=== PATIENT | male | born 1995 | race Caucasian/White ===

== ENCOUNTER 2020-04-28 06:26 | Emergency (ER) | payer OTHER, SELFPAY ==
[2020-04-28 06:37] VITALS: BP 135/75; PULSE 77; RESP 18; TEMP 36.8; O2SAT 100; BMI 39.4
[2020-04-28 07:07] LABS: Glucose, Whole Blood 198 mg/dL (60-115)
--- NOTE | 2020-04-28 07:19 | ED.URI ---
HPI - URI/Sore Throat General Chief Complaint: Upper Respiratory Symptoms Stated Complaint: Sob/ Pending covid results Time Seen by Provider: 04/28/20 06:48 History of Present Illness HPI Narrative: Positive coughing positive upper respiratory symptoms ongoing for about 2 days. Patient already been tested for coronavirus at [facility]. Patient claims there is a family member tested positive for coronavirus. There is no change in smell or taste. There is positive coughing. There is positive upper respiratory symptoms. Patient has a history of diabetes. Also history of asthma. Never been admitted to the hospital. Patient from home. No recent travel. Positive generalized malaise. Related Data Allergies Allergy/AdvReac Type Severity Reaction Status Date / Time No Known Allergies Allergy Unverified 01/21/20 18:57 [No Known Allergies*] Review of Systems Review of Systems: Constitutional: No Weight loss, phos is Fever, No Chills, No Night Sweats, positive Fatigue, No Malaise ENT/Mouth: No Hearing loss, No Ear Pain, No Nasal Congestion, No Sinus Pain, No Hoarseness, No sore throat, No Rhinorrhea, No Swallowing Difficulty Eyes: No Eye Pain, No Swelling, No Redness, No Foreign Body, No Discharge, No Vision Changes Cardiovascular: No Chest Pain, No SOB, No Dyspnea on Exertion, No Orthopnea, No Edema, No Palpitations Respiratory: Positive Cough, No Sputum, No Wheezing, No Smoke Exposure, No Dyspnea Gastrointestinal: No Nausea, No Vomiting, No Diarrhea, No Constipation, No abdominal Pain, No Hematochezia, No Melena Genitourinary: no irregular bleeding, No Dysuria, No Urinary Frequency, No Hematuria, No Urinary Incontinence, No Urgency, No Flank Pain, No Urinary Flow Changes, No Hesitancy Musculoskeletal: No joint pain, No Myalgias, No Joint Swelling Skin: No Skin Lesions, No rash Neuro: No Weakness, No Numbness, No Paresthesias, No Loss of Consciousness, No Dizziness, No Headache Psych: No Anxiety/Panic, No Depression, No SI/HI/AH/VH, No Social Issues, Heme/Lymph: No Bruising, No Bleeding,No Lymphadenopathy Endocrine: No Polyuria, No Polydipsia, No Temperature Intolerance Yes all other systems are reviewed and are negative [facility] Past Medical History Attestation statement: The following information was validated with the patient. Medical History Asthma Diabetes mellitus, type 2 Surgical History History of appendectomy Social History Social History Advance Directives: No Physical Exam Vital Signs: Vital Signs: Last Vital Signs Temp 98.3 F 04/28/20 06:37 Pulse 77 04/28/20 06:37 Resp 18 04/28/20 06:37 BP 135/75 04/28/20 06:37 Pulse Ox 100 04/28/20 06:37 Body Mass Index 39.4 Appearance: Alert. Oriented X3. No acute distress. Eyes: Pupils equal, round and reactive to light. ENT: Pharynx normal. Neck: Normal inspection. Neck supple. No lymph nodes noted. No crepitus CVS: Normal heart rate and rhythm. Pulses normal. Normal S1 and S2 Respiratory: No respiratory distress. Breath sounds normal. No Wheezing. No rales Abdomen: Soft and nontender. No rigidity. No distention. good BS x4 Skin: Skin warm and dry. Normal skin color. Normal skin turgor. Extremities: No lower extremity edema. Neurovascular intact to all extremities. No Lacerations. No Rash Neuro: Oriented X 3. No motor deficit. No sensory deficit. Moving all extermities. No slurred speech MDM - URI/Sore Throat MDM Narrative Medical decision making narrative: Patient's O2 sat is 100% on room air. POC glucose was 198 no evidence for hyperglycemia. Will discharge patient home. Advised to stay at home quarantine until all symptom has improved and no fever for at least 24-48 hours. Currently in stable condition. Likely coronavirus Differential Diagnosis Differential diagnosis: Likely upper respiratory infection Medical Records Attestation: I reviewed the patient's medical records. Lab Data Attestation: I reviewed the patient's lab results. Labs: Lab Results 04/28/20 Range/Units 07:03 POC Glucose 198 H (60-115) mg/dL Discharge Plan Discharge Clinical Impression: COVID-19 Patient Disposition: Home, Self-Care Instructions: COVID-19 (Coronavirus Disease 2019) (ED) Referrals: Shahriar Hendrickson MD [Primary Care Provider] - 2 days
== END 2020-04-28 08:00 | disposition home or self-care (01) ==
PROVIDERS: Emergency Provider Emergency Medicine Emergency Medical Services; PCP Internal Medicine
DX: Z20.828 Contact with and (suspected) exposure to other viral communicable diseases (principal); R05 Cough; E11.9 Type 2 diabetes mellitus without complications; J45.909 Unspecified asthma, uncomplicated
CPT/HCPCS: 82947; 99283

== ENCOUNTER 2024-12-22 00:38 | Emergency (ER) | payer OTHER, SELFPAY ==
--- NOTE | ~2024-12-22 | XR_ITS ---
CLINICAL HISTORY: stepped on nail foot pain 3 view right foot Comparison: None provided Findings: Imaged fusion of the distal 5th interphalangeal joint. No acute displaced fracture. No dislocation. No retained metallic foreign body. IMPRESSION: 1. No retained metallic foreign body. 2. No displaced fracture. This document has been electronically signed by: Desahwn Lentz MD on 12/22/2024 01:55:45
[2024-12-22 00:42] VITALS: BP 116/72; PULSE 84; RESP 18; TEMP 36.3; O2SAT 98; BMI 31.6
--- OUTSIDE RECORDS SUMMARY | 2024-12-22 03:49 | XMS_ITS | Clinical Summary ---
Author Organization [facility] [address] [place] [address] [place] [phone] Phone Care Team Providers Care Social Science Professor Name Role Phone Shahriar Hendrickson MD Primary Care Provider [phone] Allergies Active Allergy Reactions Criticality Noted Date Comments Cyclobenzaprine Hcl 02/17/2014 Itchy and nausea Medications blood sugar diagnostic (FreeStyle Lite Strips) test strip Use to check blood sugar once daily. 4 Active FREESTYLE LANCETS MISC Use to check blood sugar once daily. 4 Active clotrimazole-be tamethasone (LOTRISONE) 1-0.05 % cream Apply 1 Application topically 2 (two) times a day. 3 Active metFORMIN XR (GLUCOPHAGE-XR) 500 mg 24 hr tablet Take 2 Tablets by mouth 2 times daily (with meals). 360 tablet 1 5 Active Active Problems Problem Noted Date Diagnosed Date Type 2 diabetes mellitus wit hout complication ([facility] V24, [facility] V28) 05/18/2019 Obesity (BMI 30-39.9) 03/21/2018 Fractured hand 02/21/2015 Anxiety 09/01/2014 History of positive PPD Overview (05/14/2024): DX:History of positive PPD; COMMENT: 18mm 07/25/14/ chest xray neg Encounters Date Type Department Care Team Description 11/03/2024 1:20 PM EDT - 11/03/2024 11:59 PM EDT Hospital Encounter [facility] Ultrasound [address] [place] [address] Localized enlarged lymph nodes Discharge Disposition: Home or Self Care from Last 3 Months Immunizations Name Administration Dates Next Due Tdap Tetanus diptheria acell ular pertussis (Boostrix; Adacel) 7yo and older 03/04/2017 Surgical History Surgery Date Site/Laterality Comments APPENDECTOMY Medical History Medical History Date Comments History of positive PPD 09/01/2014 DX:Histo ry of positive PPD; COMMENT: 18mm 07/25/14/ chest xray neg Anxiety 09/01/2014 DX:Anxiety Type 2 diabetes mellitus wit hout complications ([facility]/HCC V24, [facility]/HCC V28) DX:Type 2 diabetes mellitus without complications ([facility]) Family History Medical History Relation Name Comments Diabetes Father HTN Diabetes Maternal Grandfather Diabetes Maternal Grandmother Hypertension Mother Diabetes Paternal Grandfather Diabetes Paternal Grandmother Relation Name Status Comments Father Maternal Grandfather Maternal Grandmother Mother Paternal Grandfather Paternal Grandmother Social History Tobacco Use Types Packs/Day Years Used Date Smoking Tobacco: Never Smokeless Tobacco: Never Tobacco Cessation:Counseling Given: Not Answered Alcohol Use Standard Drinks/Week Comments Not Currently 0 (1 standard drink = 0.6 oz pur e alcohol) Sex and Gender Information Value Date Recorded Sex Assigned at Not on file Legal Sex Male 4:52 AM EST Gender Identity Not on file Sexual Orientation Not on file Obstetrics History Last Filed Vital Signs Vital Sign Reading Time Taken Comments Blood Pressure 110/60 09/09/2024 10:30 AM EDT Pulse 78 09/09/2024 10:30 AM EDT Temperature 36.4 C (97.5 F) 09/09/2024 10:30 AM EDT Respiratory Rate 20 09/09/2024 10:30 AM EDT Oxygen Saturation 97% 07/23/2024 2:34 PM EDT Inhaled Oxygen Concentration - - Weight 85.7 kg (189 lb) 09/09/2024 10:30 AM EDT Height 165.1 cm (5' 5 ) 09/09/2024 10:30 AM EDT Body Mass Index 31.45 09/09/2024 10:30 AM EDT Plan of Treatment Upcoming Encounters Date Type Department Care Team (Late st Contact Info) Description 02/04/2025 8:30 AM EDT Office Visit Adult Medicine [facility] [address] [place] [address] Shahriar Hendrickson MD [address] [place] [id number] Scheduled Procedures Name Priority Associated Diagnoses Date/Ti me CIRCUMCISION Phimosis Health Maintenance Due Date Last Done Comments Diabetes: Annual Foot Exam 02/11/2004 Diabetes: Annual Retina Eye Exam 02/11/2004 Hepatitis B Vaccines (1 of 3 - 19+ 3-dose series) 2013 Pneumococcal Vaccine: Pediatrics (0 to 5 Years) and At-Risk Patients (6 to 49 Years) (1 of 2 - PCV) 2013 HIV Screening 04/14/2022 Hepatitis C Screening 04/14/2022 Social Influencers of Health Screening 04/14/2022 Diabetes: Annual Urine Albumin-Creatinine Ratio (uACR) 04/20/2022 COVID-19 Vaccine (2023-2 5 season) 2024 Diabetes: Blood Sugar Contro l Test (HGBA1C) 03/12/2024 09/10/2023, 09/10/2023 Depression Screening 05/06/2024 Diabetes: Annual GFR (Glomerular Filtration Rate) 09/09/2024 09/10/2023, 09/10/2023 Influenza Vaccine (#1) 2025 DTaP,Tdap,and Td Vaccines (2 - Td or Tdap) 03/04/2027 03/04/2017 Cholesterol Screening (Lipid Panel) 12/29/2027 12/28/2022 HIB Vaccines Aged Out No longer eligi ble based on patient's age to complete this topic HPV Vaccines Aged Out No longer eligi ble based on patient's age to complete this topic Hepatitis A Vaccines Aged Out No long er eligible based on patient's age to complete this topic IPV Vaccines Aged Out No longer eligi ble based on patient's age to complete this topic MMR Vaccines Aged Out No longer eligi ble based on patient's age to complete this topic Meningococcal ACWY Vaccine Aged Out N o longer eligible based on patient's age to complete this topic Meningococcal B Vaccine Aged Out No l onger eligible based on patient's age to complete this topic RSV Immunization Patients Under 20 months Aged Out No longer eligible b ased on patient's age to complete this topic Varicella Vaccines Aged Out No longer eligible based on patient's age to complete this topic Procedures Procedure Name Priority Date/Time Associated Diagnosis Comments US BX NDL LYMPH NODE SUPERFICIAL RIGHT Routine 11/03/2024 2:43 PM EDT Localized enlarged lymph nodes TISSUE EXAM Routine 11/03/2024 2:02 PM EDT Localized enlarged lymph nodes FLOW CYTOMETRY Routine 11/03/2024 2:02 PM EDT Localized enlarged lymph nodes FINE NEEDLE ASPIRATION Routine 11/03/2024 2:00 PM EDT Localized enlarged lymph nodes HM ANNUAL BMP BLOOD TEST Routine 09/10/2023 HEMOGLOBIN A1C Routine 09/10/2023 LIPID PANEL Routine 12/28/2022 from Last 3 Months or Most Recently Relevant to Health Maintenance Results * US Bx Ndl Lymph Node Superficial Right (11/03/2024 2:43 PM EDT) Anatomical Region Laterality Modality Body Right Ultrasound 11/03/2024 5:07 PM EDT Impressions 11/03/2024 5:08 PM EDT Ultrasound-guided fine-needle and core biopsy of right inguinal lymphadenopathy. -------- FINAL REPORT -------- Dictated By: Chuy Flores Dictated Date: 11/03/2024 17:07 ET Assigned Physician: Chuy Flores Reviewed and Electronically Signed By: Chuy Flores Signed Date: 11/03/2024 17:08 ET Workstation ID: [id number] Transcribed By: Self Edit Transcribed Date: 11/03/2024 17:07 ET Narrative 11/03/2024 5:08 PM EDT INDICATION: Right inguinal lymphadenopathy PROCEDURE: Ultrasound-guided biopsy of right inguinal lymphadenopathy prior relevant studies: none MEDICATIONS: Local anesthesia: 1% buffered lidocaine administered subcutaneously and up to the biopsy target site. Sedation: none TECHNIQUE/FINDINGS: Prior imaging reviewed and procedure discussed with the patient. Written informed consent obtained. Multiple images obtained of the biopsy target site. Appropriate region of the skin was localized, draped and then prepped sterilely. Under real-time ultrasound guidance both fine-needle and core biopsy performed. Fine-needle sampling performed followed by multiple 18-gauge core biopsy samples. Bandage applied over the needle entry site. Specimens: Fine-needle samples placed in CytoLyt after creation of histological slides. Core biopsy samples placed into formalin as well as flow cytometry. Flow cytometry sample obtained with a heparinized needle. Preliminary findings: Atypical lymphoid infiltrate, final evaluation pending Procedure Note Chuy Flores MD - 11/03/2024 INDICATION: Right inguinal lymphadenopathy PROCEDURE: Ultrasound-guided biopsy of right inguinal lymphadenopathy prior relevant studies: none MEDICATIONS: Local anesthesia: 1% buffered lidocaine administered subcutaneously and upto the biopsy target site. Sedation: none TECHNIQUE/FINDINGS: Prior imaging reviewed and procedure discussed withthe patient. Written informed consent obtained. Multiple images obtainedof the biopsy target site. Appropriate region of the skin was localized,draped and then prepped sterilely. Under real-time ultrasound guidance both fine-needle and core biopsyperformed. Fine-needle sampling performed followed by multiple 18-gaugecore biopsy samples. Bandage applied over the needle entry site. Specimens: Fine-needle samples placed in CytoLyt after creation ofhistological slides. Core biopsy samples placed into formalin as well asflow cytometry. Flow cytometry sample obtained with a heparinizedneedle. Preliminary findings: Atypical lymphoid infiltrate, final evaluationpending IMPRESSION: Ultrasound-guided fine-needle and core biopsy of right inguinallymphadenopathy. -------- FINAL REPORT -------- Dictated By: Chuy Flores Dictated Date: 11/03/2024 17:07 ET Assigned Physician: Chuy Flores Reviewed and Electronically Signed By: Chuy Flores Signed Date: 11/03/2024 17:08 ET Workstation ID: [id number] Transcribed By: Self Edit Transcribed Date: 11/03/2024 17:07 ET us Monica Haas MD IMG US PROCEDURES Final Result * Flow cytometry (11/03/2024 2:02 PM EDT) Flow Cytometry Interpretation Right Inguinal Lymph Node, Flow cytometry: No monotypic B cell population identified. Most of the remaining lymphocytes are CD3-positive T cells including CD4-positive and CD8-positive subsets without diagnostic phenotypic aberrancy. There is no discrete population of [id number]-[id number] blasts identified. See comment. Comment: The overall findings show findings in keeping with a reactive lymphoid population. The flow cytometry findings do not support a diagnosis of a lymphoproliferative disorder. It is noted that a negative flow cytometry study does not fully exclude the possibility of a neoplastic process, as some neoplastic processes do not show clonal abnormalities that are detectable by flow cytometry. Correlation with the morphologic and immunohistochemical findings in the accompanying lymph node core biopsy specimen ([id number]) is recommended. . Please note that myeloid disorders cannot be reliably excluded by flow cytometry. Clinical correlation and follow-up is recommended. If the patient's lymphadenopathy fails to resolve in a clinically appropriate fashion or if there is clinical concern for a neoplastic process at this site, additional sampling would warrant consideration (as clinically indicated). SPECIMEN: RT Inguinal LN ([id number]) VIABILITY: 96.9% TOTAL CELL YIELD: 3.6x106/mL IMMUNOPHENOTYPIC FINDINGS: Lymphocytes are 96.1% of total. T cells are 45.9% of total (47.8% of cells in lymphocyte gate) with no aberrant phenotype, CD4:CD8= 6.8. B cells are 44.0% of total (45.8% of cells in lymphocyte gate) and are polytypic (kappa:lambda ratio = 1.6). Two distinct subsets of polytypic B cells are present, including one subset showing expression of CD10, CD38 and relatively bright expression of CD20 without expression of CD200 and one subset showing expression of CD20 and CD200 but without coexpression of CD10 or CD38. Individual analysis of these subsets show that each has a polytypic pattern of surface kappa and lambda light chain expression. There is no significant expression of CD5 by the B cells. Granulocytes are 0.6% of total and monocytic cells are 3.4% of total. There is no definite VR02-hjbazkpi blast population seen. REVIEW OF COOLEY-STAINED CYTOSPIN: The cytospin shows a polymorphous lymphoid infiltrate. The majority of the lymphocytes are small; however, a substantial number of large lymphoid cells are also present. Scattered plasma cells, occasional histiocytes, and rare multinucleated giant cells are noted. Antibodies (17 markers): CD2, CD3, CD4, CD5, CD7, CD8, CD10, CD19, CD20, CD34, CD38, CD45, CD56, CD200, [place], Lambda, TCR gamma-delta. 11/05/2024 1:29 PM EDT [facility] Disclaimer This test was developed and its performance characteristics determined by [facility]. It has not been cleared or approved by U.S. Food and Drug Administration. The FDA does not require this test to go through premarket FDA review. This test is used for clinical purposes. It should not be regarded as investigational or for research. This laboratory is certified under Clinical Laboratory Improvement Amendments of 1988 (CLIA) as qualified to perform high complexity clinical laboratory testing. 11/05/2024 1:29 PM EDT [facility] Tissue Lymph node specimen / Unknown 11/03/2024 2:02 PM EDT 11/03/2024 3:07 PM EDT Monica Haas MD LAB BLOOD ORDERABLES Fin al Result [facility] [address] [place] [address], [place] [phone] * Tissue exam (11/03/2024 2:02 PM EDT) Final Diagnosis Lymph node, right inguinal, core biopsy: - Lymph node with prominent reactive follicular lymphoid hyperplasia. (See note.) - No lymphoma and no carcinoma identified. - Flow cytometric evaluation shows no monotypic B cell population and no aberrant T cell population. (Excerpts of the flow cytometry report are attached below. See separate flow cytometry report ([id number]) for complete details.) - Immunohistochemical studies were performed on a cash posting representative block of the core biopsy specimen to further characterize the lymphoid population including the lymphoid follicles and to exclude the possibility of an epithelial cell population. The results are as follows: CD3: Subset of small lymphocytes (mainly interfollicular, some intra-follicular) are immunoreactive. CD20: Subset of lymphocytes immunoreactive (mainly follicle centers, with attenuated mantle zones). BCL2: Follicle center cells are negative; most remaining lymphocytes are immunoreactive. Cytokeratin CARLOS: Negative (no epithelial cell population identified). TdT: Rare single TdT-positive cells are noted. Interpretation: Immunohistochemical studies show that most of the interfollicular lymphocytes are immunoreactive for CD3 and represent small T cells. It is noted that some blood vessels are infiltrated by small T cells. The CD20 highlights predominantly cells in the lymphoid follicles and mantle zones, which appear somewhat attenuated/thinned. The follicle center cells lack expression of BCL2, supporting interpretation as reactive follicles (germinal centers). A cytokeratin stained section is negative for epithelial cells (no carcinoma is identified). Note: The morphologic and immunophenotypic findings support interpretation as sampling of a lymph node with reactive changes and do not support a diagnosis of lymphoma or carcinoma in this core biopsy specimen. However, clinical correlation and follow-up is recommended. If the patient's lymphadenopathy fails to resolve in a clinically appropriate fashion or if there is clinical concern for a neoplastic process at this site, additional sampling would warrant consideration (as clinically indicated). Right Inguinal Lymph Node, Flow cytometry: No monotypic B cell population identified. Most of the remaining lymphocytes are CD3-positive T cells including CD4-positive and CD8-positive subsets without diagnostic phenotypic aberrancy. There is no discrete population of WB24-xlwfxhnw blasts identified. See comment. Comment: The overall findings show findings in keeping with a reactive lymphoid population. The flow cytometry findings do not support a diagnosis of a lymphoproliferative disorder. It is noted that a negative flow cytometry study does not fully exclude the possibility of a neoplastic process, as some neoplastic processes do not show clonal abnormalities that are detectable by flow cytometry. IMMUNOPHENOTYPIC FINDINGS: Lymphocytes are 96.1% of total. T cells are 45.9% of total (47.8% of cells in lymphocyte gate) with no aberrant phenotype, CD4:CD8= 6.8. B cells are 44.0% of total (45.8% of cells in lymphocyte gate) and are polytypic (kappa:lambda ratio = 1.6). Two distinct subsets of polytypic B cells are present, including one subset showing expression of CD10, CD38 and relatively bright expression of CD20 without expression of CD200 and one subset showing expression of CD20 and CD200 but without coexpression of CD10 or CD38. Individual analysis of these subsets show that each has a polytypic pattern of surface kappa and lambda light chain expression. There is no significant expression of CD5 by the B cells. Granulocytes are 0.6% of total and monocytic cells are 3.4% of total. There is no definite OA90-wlbwzkll blast population seen. 5 1:29 PM EDT [facility] Gross Description A. Lymph Node, right inguinal: Labeled with the patient's name and information. Received in formalin are four pink-red cylindrical soft tissue cores, ranging from 0.7 x 0.1 cm to 1.4 x 0.1 cm, which are wrapped in paper and submitted in toto in two cassettes, two pieces each, x 2 with 15 unstained slides cut at 3 m between levels. Additional tissue is submitted in RPMI to [facility] for flow cytometry. A touch prep is made. JIN 1:29 PM EDT [facility] Intraoperative Consultation A. Lymph Node, right inguinal: Touch prep of core biopsy: Atypical lymphoid infiltrate Sadia Lamar MD 11/03/24 14:57 5 1:29 PM EDT [facility] Disclaimer NOTE: The immunohistochemical tests and in situ hybridization tests were developed and their performance characteristics were determined by [facility]. They have not been cleared or approved by the U.S. Food and Drug Administration. The FDA has determined that such clearance or approval is not necessary. These tests are used for clinical purposes. They should not be regarded as investigational or for research. This laboratory is certified under the Clinical Laboratory Improvement Amendments of 1988 (CLIA) as qualified to perform high complexity clinical laboratory testing. (controls appropriate) Unless otherwise specified, all tissue is 10% NB formalin fixed and paraffin embedded. 1:29 PM EDT [facility] Tissue Lymph node specimen / Unknown 11/03/2024 2:02 PM EDT 11/03/2024 2:44 PM EDT Monica Haas MD LAB PATHOLOGY ORDERABLES Final Result [facility] [address] [place] [address], * Fine needle aspiration (11/03/2024 2:00 PM EDT) Final Diagnosis Right inguinal lymph node, fine needle aspiration (direct smears, cell block): Mixed population of lymphocytes consistent with benign lymph node No malignant cells identified 11/09/2024 9:26 AM EDT [facility] Comment Please see the corresponding core biopsy, [id number], for the histologic, immunohistologi jonathan, and flow cytometric findings. 11/09/2024 9:[address] [facility] Specimen A Adequacy Satisfactory for evaluation 11/09/2024 9:26 AM EDT [facility] Comment:This is an appended report. These results have been appended to a previously preliminary verified report. Gross Description A. Lymph Node, right inguinal node: Received 50 ml of white cloudy saline solution. 2 air dried, 2 alc fixed Formalin fixation 11.5 put in formalin at 0930 11/09/2024 9:26 AM EDT [facility] Intraoperative Consultation A. Lymph Node, right inguinal node: Fine needle aspirate: Atypical lymphoid infiltrate Sadia Lamar MD 11/03/24 14:57 11/09/2024 9:26 AM EDT [facility] Disclaimer Unless otherwise specified, all tissue is 10% NB formalin fixed and paraffin embedded. Technical cytopathology services provided by [facility], at [address] [place] [id number] (CLIA # [id number]/Patrick Boucher MD, [employer]el [employer] Finish Opener.) 11/09/2024 9:26 AM EDT [facility] Fine Needle Aspirate Lymph node specimen / Unknown 11/03/2024 2:00 PM EDT 11/03/2024 2:44 PM EDT Monica Haas MD LAB PATHOLOGY ORDERABLES Final Result [facility] [address] [place] [address], * Annual BMP Blood Test (09/10/2023) Annual BMP Blood Test Abstracted Historical Provider HEALTH MAINTENANCE Final Result * (ABNORMAL) Hemoglobin A1c (09/10/2023) Hemoglobin A1C 11.0(A) <=6.5 % Blood Venous blood specimen / Unknown Historical Provider LAB BLOOD ORDERABLES Kelsey l Result * Lipid panel (12/28/2022) LDL/HDL Ratio 3 0 - 4 Triglycerides 144 0 - 150 mg/dL Cholesterol 136 0 - 200 mg/dL HDL 42 >=40 mg/dL LDL Cholesterol 66 0 - 100 mg/dL Blood Venous blood specimen / Unknown Historical Provider LAB BLOOD ORDERABLES Kelsey l Result from Last 3 Months or Most Recently Relevant to Health Maintenance Insurance [facility] [employer] Care Teams Social Science Professor Relationship Specialty Start Date End Date Shahriar Hendrickson MD [address] [place] [phone] PCP - General Internal Medicine 05/14/24
--- NOTE | 2024-12-22 08:10 | ED.LOWEXIN ---
HPI - Extremity Injury (Lower) General Chief Complaint: Extremity Injury, Lower Stated Complaint: stepped on nail Time Seen by Provider: 12/22/24 07:56 Source: patient and RN notes reviewed Mode of arrival: ambulatory Limitations: no limitations History of Present Illness ED Provider: Jaida Do PA-C HPI Narrative: This is a 29-year-old male, with a past medical history of diabetes, who presents emergency department with concerns of right foot pain since last night. Patient states that he accidentally stepped on a nail while wearing Crocs. He went to [facility] however left without completing treatment as the wait time was too long. He is unsure what his last tetanus shot was. Denies any fevers or chills. Pain with weight-bearing. Onset (ago): day(s) Type of Injury: puncture wound Place: home Severity: moderate Relieving factors: nothing Exacerbating factors: weight bearing, movement and palpation Associated symptoms: swelling Other symptoms: none Related Data Previous Rx's ?Medication ?Instructions ?Recorded acetaminophen 500 mg tablet 500 - 1,000 mg (1 - 2 x 500 mg) PO 12/22/24 (Tylenol Extra Strength) Q6H PRN pain #30 tabs cephalexin 500 mg capsule 500 mg PO QID 7 days #28 caps 12/22/24 ciprofloxacin HCl 500 mg tablet 500 mg PO BID 7 days #14 tabs 12/22/24 (Cipro) ibuprofen 600 mg tablet 600 mg PO Q6H PRN pain #30 tabs 12/22/24 Allergies Allergy/AdvReac Type Severity Reaction Status Date / Time No Known Allergies (No Known Allergy Verified 12/22/24 00:43 Allergies*) Review of Systems Review of Systems: Yes all other systems are reviewed and are negative Constitutional: Constitutional: Reports as per HPI [facility], [facility] Past Medical History Medical History Asthma Diabetes mellitus, type 2 Surgical History History of appendectomy Physical Exam Vital Signs: Vital Signs: Last Vital Signs Temp 97.4 F 12/22/24 10:02 Pulse 84 12/22/24 10:02 Resp 18 12/22/24 10:02 BP 116/72 12/22/24 10:02 Pulse Ox 98 12/22/24 10:02 O2 Del Method Room Air 12/22/24 00:42 BMI result Body Mass Index 31.6 Const: General: cooperative, comfortable and no acute distress Orientation/consciousness: patient oriented x3 Limitations: no limitations HEENT: Head: Yes normal to inspection, Yes normocephalic and Yes atraumatic Ears: hearing grossly normal bilaterally General nose exam: Normal external nose present Face and sinus: Yes normal facial exam Mouth: Normal oral and palatal mucosa present, oropharynx normal and moist mucous membranes Throat: Yes posterior oropharynx normal Eyes: General: appearance normal, both eyes and all related structures Eyelids: Yes eyelids normal Conjunctivae: conjunctivae normal Sclerae: sclerae normal Pupils: Equal, round and reactive pupils present EOM: EOMs intact bilaterally Neck: Neck: Yes normal visual inspection, Yes full ROM and Yes no lymphadenopathy Lymphatic: no lymphadenopathy noted Chest: Chest palpation & inspection: normal inspection of the chest Resp: Effort & Inspection: normal respiratory effort and able to speak in complete sentences Auscultation: clear to auscultation bilaterally, no crackles, no rales, no rhonchi and no wheezes Cardio: Rate: regular rate Rhythm: regular rhythm Heart sounds: S1 normal heart sound present and S2 normal heart sound present GI: Inspection: Yes normal to inspection Skin: General skin exam: no rashes or lesions noted Trauma: no lacerations or abrasions Wounds: no wounds Neuro: General: patient oriented x3 and moves all extremities Cranial nerves: Yes Equal, round and reactive pupils present Extrem: Other: Right foot with 2 mm puncture wound noted on the plantar aspect, overlying the distal 3rd tarsal bone. Mild edema noted. Tender to palpation. No obvious foreign body noted. General: Yes normal to inspection Right upper extremity: normal to inspection Left upper extremity: normal to inspection Right lower extremity: normal to inspection Left lower extremity: normal to inspection Medications Administered Discontinued Medications Generic Name Dose Route Start Last Admin Trade Name Freq PRN Reason Stop Dose Admin Acetaminophen 975 mg 12/22/24 08:33 12/22/24 08:53 Acetaminophen 325 Mg Tablet PO 12/22/24 08:34 975 mg ONCE ONE Administration Bacitracin 1 appl 12/22/24 09:29 12/22/24 09:56 Bacitracin Oint 0.9 Gm Packet TOPICAL 12/22/24 09:30 1 appl ONCE ONE Administration Protocol Diphtheria/Tetanus/Acell Pertussis 0.5 ml 12/22/24 08:48 12/22/24 08:54 Diphth,Pertus(Acell),Tet Adult 0.5 Ml Syringe IM 12/22/24 08:49 0.5 ml .ONCE ONE Administration Ketorolac Tromethamine 30 mg 12/22/24 08:33 12/22/24 08:56 Ketorolac Tromethamine 30 Mg/Ml Vial IM 12/22/24 08:34 30 mg ONCE ONE Administration Levofloxacin 750 mg 12/22/24 08:45 12/22/24 08:53 Levofloxacin 750 Mg Tablet PO 12/22/24 08:46 750 mg ONCE ONE Administration Medical Decision Making Medical Decision Making [facility] Narrative: This is a 29-year-old male, with a past medical history of diabetes, who presents emergency department for evaluation of puncture wound. He accidentally stepped on a nail last night. Unsure of his last tetanus. Right foot with puncture wound noted, with mild surrounding edema and tenderness. Pain with weight-bearing. Updated tetanus in the department today. He was also given dose of Levaquin for Pseudomonas coverage. Wound was cleansed with Betadine soak for approximately 30 minutes in the department. Wound was dressed with bacitracin. Also given crutches. He was given strict return precautions. Discharged on Keflex and ciprofloxacin. Warned against the tendon rupture black box warning, advised to not lift or exercise while he is on this antibiotic. He understands and agrees with plan. Patient stable for discharge. Differential Diagnosis Differential Diagnoses: The differential diagnosis associated with the presentation includes Puncture wound, cellulitis, laceration, contusion, fracture Radiology Impression Discussion of test interpretation with radiology: I have reviewed the radiologist's reading. Radiologist Impression: Findings: Imaged fusion of the distal 5th interphalangeal joint. No acute displaced fracture. No dislocation. No retained metallic foreign body. IMPRESSION: 1. No retained metallic foreign body. 2. No displaced fracture. This document has been electronically signed by: Deshawn Lentz MD on 12/22/2024 01:55:45 Dictated By: Deshawn Lentz MD Signed By: <Electronically madison Discharge Plan Discharge Clinical Impression: Puncture wound of foot Patient Disposition: Home, Self-Care Instructions: Puncture Wound (ED), Puncture Wound in the Foot (ED) Additional Instructions: You were seen in the emergency department after stepping on a nail. Please continue warm soaks at home, 5-6 times per day. Take prescribed antibiotic as directed, finish the entire courses even if your symptoms improve. Start the ciprofloxacin tomorrow. Ciprofloxacin is to be taken twice a day. You can take the Keflex antibiotic tonight. This is to be taken 4 times a day. No heavy lifting or exercising while you are on these antibiotics as ciprofloxacin can cause problems with tendon injury therefore very important that you do not strain yourself while on these medications. We updated your tetanus shot in the department today. Take ibuprofen 600 mg every 6 hours, 2 hours later take Tylenol 1000 mg every 8 hours. Alternating between both of these medications can provide you with good pain relief. Elevate your foot as this can also help reduce the inflammation and swelling. If any new or worsening symptoms occur including but not limited to worsening pain, swelling, fevers, please return for re-evaluation. Prescriptions: New ciprofloxacin HCl [Cipro] 500 mg tablet 500 mg PO BID 7 Days Qty: 14 0RF cephalexin 500 mg capsule 500 mg PO QID 7 Days Qty: 28 0RF ibuprofen 600 mg tablet 600 mg PO Q6H PRN (Reason: pain) Qty: 30 0RF acetaminophen [Tylenol Extra Strength] 500 mg tablet 500 - 1,000 mg PO Q6H PRN (Reason: pain) Qty: 30 0RF Stand Alone Forms: Work/School Release Interventions: ED Discharge Assessment Last Done: 12/22/24 10:02 Discharge Date/Time: 12/22/24 10:04 Print Language: Nepalese
[2024-12-22] MEDS: Diphth,Pertus(ACell),Tet Adult 0.5 ML SYRINGE IM (08:54)
[2024-12-22 10:02] VITALS: BP 116/72; PULSE 84; RESP 18; TEMP 36.3; O2SAT 98
== END 2024-12-22 10:04 | disposition home or self-care (01) ==
PROVIDERS: Emergency Provider Emergency Medicine; PCP Internal Medicine
DX: S91.331A Puncture wound without foreign body, right foot, initial encounter (principal); W45.0XXA Nail entering through skin, initial encounter; Y93.9 Activity, unspecified; Y92.9 Unspecified place or not applicable; Y99.9 Unspecified external cause status; M79.671 Pain in right foot; Z23 Encounter for immunization
CPT/HCPCS: 73630; 90471; 90715; 96372; 99283; 99284; J1885

== ENCOUNTER → 2024-12-22 23:55 | Outpatient (BNV) | payer OTHER, SELFPAY | PROVIDERS: PCP Internal Medicine; Visit Provider Radiology Neuroradiology | DX: M79.671 Pain in right foot (principal) | CPT/HCPCS: 73630 ==

== ENCOUNTER 2025-04-21 10:41 | Emergency (ER) | payer OTHER, SELFPAY ==
[2025-04-21 10:53] VITALS: BP 133/68; PULSE 86; RESP 18; TEMP 36.4; O2SAT 98; BMI 31.3
--- NOTE | 2025-04-21 10:53 | ED_ITS ---
HPI - General Adult General Chief complaint: Abdominal Pain Stated complaint: abd pain Time Seen by Provider: 04/21/25 12:23 Source: patient Mode of arrival: ambulatory Limitations: no limitations History of Present Illness ED Provider: Hali Dawson PA-C HPI narrative: Patient is a 30 year old male with a history of DM and asthma presenting to the emergency department today with upper abdominal pain and concerns for constipation. Patient states that over the last few days he has had upper abdominal pain with intermittent nausea. Patient states that he has felt constipated but has had his last bowel movement yesterday that was less than usual but no other abnormal characteristics. Patient denies any other complaints at this time. Related Data Previous Rx's ?Medication ?Instructions ?Recorded acetaminophen 500 mg tablet 500 - 1,000 mg (1 - 2 x 50 0 mg) PO 12/22/24 (Tylenol Extra Strength) Q6H PRN pain #30 tabs cephalexin 500 mg capsule 500 mg PO QID 7 days #28 cap s 12/22/24 ciprofloxacin HCl 500 mg tablet 500 mg PO BID 7 days # 14 tabs 12/22/24 (Cipro) ibuprofen 600 mg tablet 600 mg PO Q6H PRN pain #30 t abs 12/22/24 Allergies Allergy/AdvReac Type Severity Reaction Status Date / Time No Known Allergies (No Known Allergy Verified 04/21/25 10:55 Allergies*) Review of Systems 2 Constitutional: Constitutional: Reports as per HPI Eyes: Eyes: Reports as per HPI ENT: Reports as per HPI Cardiovascular: Cardiovascular: Reports as per HPI Respiratory: Respiratory: Reports as per HPI Gastrointestinal: Gastrointestinal: Reports as per HPI Genitourinary: Genitourinary: Reports as per HPI Musculoskeletal: Musculoskeletal: Reports as per HPI Integumentary/Breasts: Skin/Breast: Reports as per HPI Neurologic: Reports as per HPI Psychiatric: Psychiatric: Reports as per HPI Endocrine: Endocrine: Reports as per HPI Hematologic/Lymphatic: Hematologic/Lymphatic: Reports as per HPI Allergic/Immunologic: Allergic/Immunologic: Reports as per HPI PMF Past Medical History Attestation statement: The following information was validated with the patient. Source: old records reviewed and nursing notes reviewed Medical History Asthma Diabetes mellitus, type 2 Surgical History History of appendectomy Social History Social History Advance Directives: No Advance Directives Information Provided: Yes Physical Exam ED Vital Signs: Vital Signs - 24 hr 04/21/25 10:53 04/21/25 12:00 04/21/25 14:00 Temperature 97.6 F 97.8 F Pulse Rate 86 72 Respiratory Rate 18 16 Blood Pressure 133/68 139/77 130/72 Pulse Oximetry 98 100 97 Oxygen Delivery Method Room Air Room Air Room Air 04/21/25 14:39 Temperature 97.8 F Pulse Rate 72 Respiratory Rate 16 Blood Pressure 130/72 Pulse Oximetry 97 Oxygen Delivery Method Room Air BMI result Body Mass Index 31.3 Const General: cooperative, no acute distress, alert and awake Nutritional Appearance: well nourished Orientation/consciousness: patient oriented x3 HENMT Head: Yes normal to inspection and Yes atraumatic Ears: hearing grossly normal bilaterally and external ears normal General nose exam: Normal external nose present, no nasal discharge noted and no epistaxis Face and sinus: Yes normal facial exam, No abrasion and No laceration Mouth: Normal oral and palatal mucosa present, no drooling and no muffled voice Eyes General: appearance normal, both eyes and all related structures Periorbital: periorbital findings normal Eyelids: Yes eyelids normal Conjunctivae: conjunctivae normal Pupils: Equal, round and reactive pupils present EOM: EOMs intact bilaterally Neck Neck: Yes normal visual inspection and Yes full ROM Resp Effort & Inspection: normal respiratory effort and able to speak in complete sentences GI Palpation (GI): Soft to palpation, not firm, nontender, no guarding and not rigid Neuro General: patient oriented x3, moves all extremities and CN's II-XI intact bilaterally Cranial nerves: Yes Equal, round and reactive pupils present Cognition (Neuro): normal cognition Extrem General: Yes normal to inspection, Yes full ROM and Yes capillary refill normal Psych Appearance: grossly normal Mental Status: mental status grossly normal Affect: normal affect Attitude: cooperative Thought process: Normal thought process present Thought content: Normal thought content present Insight: Good insight present (Psych) Course Course Course Narrative: This is a rapid medical exam performed by Christina Castelan NP: Additional HPI, ROS, PE not included below will be deferred to primary provider. Patient is a 30y/o M with pmhx T2DM presenting with elevated blood glucose level this am, >200, has been taking his metformin as prescribed. Also complains of upper abdominal pain and nausea. Plan: Viral serology, labs, UA Medical Decision Making Medical Decision Making [facility] Narrative: Patient is a 30 year old male with a history of DM and asthma presenting to the emergency department today with upper abdominal pain and concerns for constipation. Patient's physical exam was as noted in the physical exam portion of this note. Patient's blood work was unremarkable - glucose consistent with the patient's history of diabetes. Patient's urine showed no acute process. I explained my physical exam findings as well as all test results to the patient and the patient's girlfriend. I answered all questions asked by the patient and the patient's girlfriend. 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 Given patient's reassuring physical exam and lab work, discharge without imaging is reasonable. Additionally, patient states that he has an appointment with his primary care provider tomorrow (04/22/2025). I stressed the importance of the patient taking his medication as directed (either prescribed or as the over the counter packaging recommends). I stressed the importance of the patient following up with his] primary care provider tomorrow as scheduled. I stressed the importance of the patient returning to the emergency department immediately if his symptoms were to worsen or if he were to develop any dizziness, shortness of breath, difficulty breathing, chest pain, blurry vision, loss of vision, nausea, vomiting, abdominal pain, fever, chills, back pain, or any other complaints. Patient and the patient's girlfriend verbalized agreement and understanding with this treatment plan and discharge. Differential Diagnosis Differential Diagnoses: The differential diagnosis associated with the presentation includes Abdominal pain Viral illness Influenza Admission/Observation Consideration of admission/observation: Escalation of care including admission/observation considered Patient would have been admitted to the hospital had his work up had any findings where hospital admission was appropriate and his clinical presentation warranted hospital admission. Lab Data [facility] Lab Attestation statement: I reviewed the patient's lab results. My interpretation of these results are in the [facility] Rationale portion of this note. 04/21/25 11:07 04/21/25 11:07 Labs: Lab Results 04/21/25 04/21/25 Range/Units 11:07 12:34 WBC 9.7 (4.8-10.8) X10*3/uL RBC 5.06 (4.60-5.80) X10*6/uL Hgb 14.8 (14.0-18.0) g/dl Hct 43.2 (42.0-52.0) % MCV 85.4 (80.0-98.0) fL MCH 29.2 (27.0-33.0) pg MCHC 34.3 (31.0-36.0) g/dl RDW 12.6 (11.0-16.0) % Plt Count 307 (160-400) X10*3/uL MPV 9.6 (9.4-12.4) fL Immature Gran % (Auto) 0.4 (0.0-0.4) % Neut % (Auto) 50.1 (45-73) % Lymph % (Auto) 37.1 (20-40) % [place] % (Auto) 10.9 (2-11) % Eos % (Auto) 1.3 (0-4) % Baso % (Auto) 0.2 (0-2) % Lymph # (Auto) 3.6 (1.2-4.9) X10*3/uL [place] # (Auto) 1.1 (0.1-1.2) X10*3/uL Eos # (Auto) 0.1 (0.0-0.4) X10*3/uL Baso # (Auto) 0.0 (0.0-0.2) X10*3/uL Abs Immat Gran (auto) 0.04 H (0.00-0.03) X10*3/uL Absolute Neuts (auto) 4.9 (2.0-8.3) x10*3/uL Absolute Nucleated RBC 0.000 (0.0-0.012) X10*3/uL Nucleated RBC % (auto) 0.0 (0.0-0.2) /100WBC Sodium 135 (135-145) mmol/L Potassium 3.7 (3.3-5.1) mmol/L Chloride 100 (96-108) mmol/L Carbon Dioxide 25 (22-29) mmol/L Anion Gap 14 (12-20) BUN 11 (9-16) mg/dL Creatinine 0.67 (0.5-1.4) mg/dL Estim Creat Clear Calc 160.4 Estimated GFR > 60 Random Glucose 292 H (60-115) mg/dL Calcium 9.3 (8.4-10.2) mg/dL Magnesium 1.7 (1.6-2.6) mg/dL Total Bilirubin 0.5 (0.0-1.0) mg/dL AST 17 (5-37) U/L ALT 14 (0-40) U/L Alkaline Phosphatase 137 H (39-117) U/L Total Protein 7.9 (6.5-8.0) g/dL Albumin 4.7 (3.5-5.0) g/dL Lipase 9 (8-78) U/L Beta-Hydroxybutyrate 0.10 (0.02-0.27) mmol/L Urine Color Yellow Urine Appearance Clear Urine pH 6.0 (5.0-9.0) Ur Specific [place] >= 1.030 H (1.005-1.025) Urine Protein Negative (Neg-Trace) mg/dL Urine Glucose (UA) >=1000 H (Negative) mg/dL Urine Ketones Trace (Negative) mg/dL Urine Blood Negative (Negative) Urine Nitrite Negative (Negative) Ur Leukocyte Esterase Negative (Negative) Urine RBC 0-2 (0-2) /HPF Urine WBC 0-5 (0-5) /HPF Ur Squamous Epith Cells 0-2 (0-2) /HPF Urine Bacteria None Seen (None Seen) Hyaline Casts 0-2 (0-2) /LPF Influenza Type A (PCR) NEGATIVE (Negative) Influenza Type B (PCR) NEGATIVE (Negative) RSV RNA Qual (PCR) NEGATIVE (Negative) SARS-CoV-2 RNA (RT-PCR) NEGATIVE (Negative) Tests considered The following testing was considered but not selected: I considered ordering a CT scan of the abdomen / pelvis however, the patient declined as noted in the MDM Rationale portion of this note. Chronic Conditions Patient?s care impacted by: Diabetes Discharge Plan Discharge Clinical Impression: Abdominal pain, Nausea Patient Disposition: Home, Self-Care Instructions: Abdominal Pain (ED) Additional Instructions: Your work up today is reassuring there is no EMERGENT cause for your symptoms. IF you are prescribed home medications and/or you are taking over the counter medications at home - it is very important you continue to do so as prescribed / directed unless told otherwise by a healthcare provider. Follow up with your primary care provider. Do your best to stay well hydrated and rest. Return to the emergency department immediately if your symptoms worsen or if you develop any numbness, tingling, dizziness, shortness of breath, difficulty breathing, chest pain, blurry vision, loss of vision, nausea, vomiting, abdominal pain, fever, chills, back pain, or any other complaints. L If you do not have a primary care provider - call any of the below numbers to establish and follow up with a primary care provider. [facility] Primary Care ([place]) [phone] [place] [address], [id number] [facility] Primary Care ([address] [place]) [phone] [place] [address], [address] [facility], [address] [facility] Primary Care ([address] [place]) [phone] [place] [address], [address] [facility], [address] [facility] Primary Care ([place]) [phone] [place] [address] [address] [facility], [address] [facility] Family Medicine [phone] [address] [facility], [address] Please see the information below about our Patient Portal. If you are not yet enrolled in the [facility] Patient Portal, you will receive an enrollment email invitation following your visit to any [facility] setting. You may also self-enroll in the Patient Portal by visiting our website: [email or web address] The following information is required to access the Patient Portal: - Your [facility] Medical Record Number - Your personal home email address (must match what is in your electronic medical record, Registration staff can assist with this) - Name - Date of Capabilities of the Patient Portal: - Message some providers - View upcoming appointments - Access your health summary, medical history, and visit history - View current conditions and allergies - View procedure and lab results - View your medications, including guidelines, side effects, and precautions - Complete pre-appointment questionnaires requested by your provider - Ready summary reports of your office visits and procedures To access the Patient Portal Mobile [employer], follow these directions: - Search [employer] in the [employer] Store or [email or web address] Store - Download the Alfredo - Search for [facility] - Enter your login/password Prescriptions: No Action ciprofloxacin HCl [Cipro] 500 mg tablet 500 mg PO BID 7 Days Qty: 14 0RF cephalexin 500 mg capsule 500 mg PO QID 7 Days Qty: 28 0RF ibuprofen 600 mg tablet 600 mg PO Q6H PRN (Reason: pain) Qty: 30 0RF acetaminophen [Tylenol Extra Strength] 500 mg tablet 500 - 1,000 mg PO Q6H PRN (Reason: pain) Qty: 30 0RF Referrals: Shahriar Hendrickson III, MD [Primary Care Provider, Medical] Stand Alone Forms: Work/School Release Interventions: ED Discharge Assessment Last Done: 04/21/25 14:39 Discharge Date/Time: 04/21/25 14:42 Print Language: Lithuanian
[2025-04-21 11:19] LABS: MANUAL DIFF FLAG NO
[2025-04-21 11:20] LABS: Hematocrit 43.2 % (42.0-52.0); Hemoglobin 14.8 g/dl (14.0-18.0); Imm Gran Abs Auto 0.04 X10*3/uL (0.00-0.03); Imm Gran Pct Auto 0.4 % (0.0-0.4); Lymphocytes Absolute Auto 3.6 X10*3/uL (1.2-4.9); Mean Corpuscular HGB Conc 34.3 g/dl (31.0-36.0); Mean Corpuscular Hemoglobin 29.2 pg (27.0-33.0); Mean Corpuscular Volume 85.4 fL (80.0-98.0); NRBC Abs Auto 0.000 X10*3/uL (0.0-0.012); NRBC Pct Auto 0.0 /100WBC (0.0-0.2); Platelet Count 307 X10*3/uL (160-400); Red Blood Count 5.06 X10*6/uL (4.60-5.80); White Blood Count 9.7 X10*3/uL (4.8-10.8)
[2025-04-21 11:36] LABS: Alanine Aminotransferase 14 U/L (0-40); Albumin Level 4.7 g/dL (3.5-5.0); Alkaline Phosphatase 137 U/L (39-117); Anion Gap 14 (12-20); Aspartate Amino Transferase 17 U/L (5-37); Blood Urea Nitrogen 11 mg/dL (9-16); Calcium 9.3 mg/dL (8.4-10.2); Carbon Dioxide 25 mmol/L (22-29); Chloride 100 mmol/L (96-108); Creatinine Clr Calc Pharmacy 160.4; Estimated Glomerular Filt Rate > 60; Magnesium 1.7 mg/dL (1.6-2.6); Potassium 3.7 mmol/L (3.3-5.1); Sodium 135 mmol/L (135-145); Total Protein 7.9 g/dL (6.5-8.0)
[2025-04-21 11:57] LABS: Resp Syncy Virus RNA Qual PCR NEGATIVE (Negative); SARS COV2 PCR INHOUSE NEGATIVE (Negative)
[2025-04-21 12:00] VITALS: BP 139/77; O2SAT 100
[2025-04-21 12:38] LABS: Lipase 9 U/L (8-78)
[2025-04-21 12:40] LABS: Appearance Urine Clear; Glucose Urine UA >=1000 mg/dL (Negative); PH 6.0 (5.0-9.0); Specific Gravity - Urine >= 1.030 (1.005-1.025); UMIC TRIGGER UACC YES
[2025-04-21 14:00] VITALS: BP 130/72; PULSE 72; RESP 16; TEMP 36.6; O2SAT 97
[2025-04-21 14:39] VITALS: BP 130/72; PULSE 72; RESP 16; TEMP 36.6; O2SAT 97
--- OUTSIDE RECORDS SUMMARY | 2025-04-21 15:39 | XMS_ITS ---
[facility] Name [facility] Organization Unknown Care Team Organization Name Specialty Phone Email Start Date End Da te [facility] ROB YOON Primary Care 03/13/2022 4
--- OUTSIDE RECORDS SUMMARY | 2025-04-21 15:39 | XMS_ITS | Clinical Summary ---
Author Organization [facility] [address] [place] [address] [place] [phone] Phone Care Team Providers Care Mailroom Clerk Name Role Phone Shahriar Hendrickson MD Primary Care Provider [phone] Allergies Active Allergy Reactions Criticality Noted Date Comments Cyclobenzaprine Hcl 02/17/2014 Itchy and nausea Medications blood sugar diagnostic (FreeStyle Lite Strips) test strip Use to check blood sugar once daily. 4 Active FREESTYLE LANCETS MISC Use to check blood sugar once daily. 4 Active clotrimazole-b etamethasone (LOTRISONE) 1-0.05 % cream Apply 1 Application topically 2 (two) times a day. 3 Active metFORMIN XR (GLUCOPHAGE-XR ) 500 mg 24 hr tablet Take 2 Tablets by mouth 2 times daily (with meals). 360 tablet 1 5 Active metFORMIN XR (GLUCOPHAGE-XR ) 500 mg 24 hr tablet Take 2 Tablets by mouth 2 times daily (with meals). 360 tablet 1 5 04/09/20 25 Discontin ued(Reord er) Active Problems Problem Noted Date Diagnosed Date Type 2 diabetes mellitus without complication Overview (02/03/2025): 02/03/25 Regulatory IMO Update Obesity (BMI 30-39.9) 03/21/2018 Fractured hand 02/21/2015 Anxiety 09/01/2014 History of positive PPD Overview (05/14/2024): DX:History of positive PPD; COMMENT: 18mm 07/25/14/ chest xray neg Encounters Date Type Department Care Team Description 04/12/2025 Results Follow-Up [address] [phone] Alexa Martinez PA 04/09/2025 10:15 AM EST Office Visit [address] [phone] Alexa Martinez PA Diarrhea, unspecified type (Primary Dx); Type 2 diabetes mellitus without complication, with long-term current use of insulin ([facility] V24, [facility] V28) 04/09/2025 Nurse Triage [address] [phone] Alexa Martinez PA from Last 3 Months Immunizations Immunization Administration Dates Next Due Tdap Tetanus diptheria acell ular pertussis (Boostrix; Adacel) 7yo and older 03/04/2017 Surgical History Surgery Date Site/Laterality Comments APPENDECTOMY Medical History Medical History Date Comments History of positive PPD 09/01/2014 DX:Histo ry of positive PPD; COMMENT: 18mm 07/25/14/ chest xray neg Anxiety 09/01/2014 DX:Anxiety Type 2 diabetes mellitus wit hout complications ([facility] V24, [facility] V28) DX:Type 2 diabetes mellitus without complications (HCC) Family History Medical History Relation Name Comments [...] drink = 0.6 oz pur e alcohol) Housing Instability Answer Date Recorde d Are you worried that in the next 2 months you may not have stable housing? No 04/09/2025 Food Access & Nutrition Answer Date Rec orded Do you have access to a vari ety of food including fruits and vegetables? Yes 04/09/2025 Health Literacy Answer Date Recorded How often do you need to hav e someone help you when you read instructions, pamphlets, or other written material from your doctor or pharmacy? Never 04/09/2025 Caregiver: How often do you need to have someone help you when you read instructions, pamphlets, or other written material from your doctor or pharmacy? Not on file 04/09/2025 Financial Risk Answer Date Recorded How hard is it for you to pa y for the very basics like food, housing, medical care, and air conditioning / heating? Not very hard 04/09/2025 Transportation Answer Date Recorded Has the lack of transportati on kept you from meetings, work, or from getting things needed for daily living? No Has the lack of transportati on kept you from medical appointments or from getting medications? No 04/09/2025 Social Isolation Answer Date Recorded How often do you feel lonely or isolated from th ose around you? Never 04/09/2025 Food Risk Answer Date Recorded Within the past 12 months we worried whether our food would run out before we got money to buy more. Never true 04/09/2025 Within the past 12 months th e food we bought just didn't last and we didn't have money to get more. Never true 04/09/2025 Dependent Care Answer Date Recorded Do you need help finding or paying for care for your loved ones. For example, children's tutor nursery or elderly care for an older adult? No 04/09/2025 Education Answer Date Recorded Do you think completing more education or training, like finishing a GED, going to college, or learning a trade, would be helpful for you? No 04/09/2025 Employment and Income Answer Date Recor ded During the last four weeks, have you been actively looking for work? No 04/09/2025 Living Situation Answer Date Recorded What is your living situation? Unrecognized valu e 04/09/2025 Sex and Gender Information Value Date Recorded Sex Assigned at Not on file Legal Sex Male 4:52 AM EST Gender Identity Not on file Sexual Orientation Not on file Last Filed Vital Signs Vital Sign Reading Time Taken Comments Blood Pressure 119/73 04/09/2025 10:20 AM EST Pulse 74 04/09/2025 10:20 AM EST Temperature 36.6 C (97.8 F) 04/09/2025 10:20 AM EST Respiratory Rate 15 04/09/2025 10:20 AM EST Oxygen Saturation 98% 04/09/2025 10:20 AM EST Inhaled Oxygen Concentration - - Weight 82.1 kg (181 lb) 04/09/2025 10:20 AM EST Height 165.1 cm (5' 5 ) 04/09/2025 10:20 AM EST Body Mass Index 30.12 04/09/2025 10:20 AM EST Plan of Treatment Upcoming Encounters Date Type Department Care Team (Late st Contact Info) Description 05/14/2025 12:00 PM EST Office Visit Adult Medicine [address] [phone] Soledad Hinton PA [address] [place] [phone] Health Maintenance Due Date Last Done Comments Diabetes: Annual Foot Exam 02/11/2004 Diabetes: Annual Retina Eye Exam 02/11/2004 Hepatitis B Vaccines (1 of 3 - 19+ 3-dose series) 2013 Pneumococcal Vaccine: Pediatrics (0 to 5 Years) and At-Risk Patients (6 to 49 Years) (1 of 2 - PCV) 2013 HPV Vaccines (1 - 3-dose SCD M series) 2021 HIV Screening 04/14/2022 Hepatitis C Screening 04/14/2022 Diabetes: Annual Urine Albumin-Creatinine Ratio (uACR) 04/20/2022 Diabetes: Blood Sugar Contro l Test (HGBA1C) 03/12/2024 09/10/2023, 09/10/2023 Diabetes: Annual GFR (Glomerular Filtration Rate) 09/09/2024 09/10/2023, 09/10/2023 COVID-19 Vaccine ( - 2024-2 6 season) 2025 Influenza Vaccine (#1) 2025 Postp oned from 01/04/2025 (Patient Refused) Social Influencers of Health Screening 04/09/2026 04/09/2025 Cholesterol Screening (Lipid Panel) 12/29/2027 12/28/2022 DTaP,Tdap,and Td Vaccines (3 - Td or Tdap) 12/22/2034 12/22/2024, 03/04/2017 RSV Immunization Adult Patients (1 - 1-dose 75+ series) 2069 Depression Screening Completed 04/09/2025 HIB Vaccines Aged Out No longer eligi [...] Procedure Name Priority Date/Time Associated Diagnosis Comments RESPIRATORY VIRUS PANEL MOLECULAR STUDY Routine 04/09/2025 11:04 AM EST Diarrhea, unspecified type POC GLUCOSE Routine 04/09/2025 10:43 AM EST Type 2 diabetes mellitus without complication, with long-term current use of insulin ([facility] V24, [facility] V28) ANNUAL BMP BLOOD TEST Routine 09/10/2023 HEMOGLOBIN A1C Routine 09/10/2023 LIPID PANEL Routine 12/28/2022 from Last 3 Months or Most Recently Relevant to Health Maintenance Results * Respiratory virus panel molecular study (04/09/2025 11:04 AM EST) Adenovirus Detection by PCR Not Detected Not Detected LAB MICROBIOLOGY METHOD 04/09/2025 7:39 PM EST [facility] Influenza A PCR Not Detected Not Detected LAB MICROBIOLOGY METHOD 04/09/2025 7:39 PM [facility] Influenza B PCR Not Detected Not Detected LAB MICROBIOLOGY METHOD 04/09/2025 7:39 PM [facility] Coronavirus 229E Not Detected Not Detected LAB MICROBIOLOGY METHOD 04/09/2025 7:39 PM [facility] Coronavirus HKU1 Not Detected Not Detected LAB MICROBIOLOGY METHOD 04/09/2025 7:39 PM [facility] Coronavirus OC43 Not Detected Not Detected LAB MICROBIOLOGY METHOD 04/09/2025 7:39 PM [facility] Coronavirus NL63 Not Detected Not Detected LAB MICROBIOLOGY METHOD 04/09/2025 7:39 PM [facility] Parainfluenza Virus 1 Not Detected Not Detected LAB MICROBIOLOGY METHOD 04/09/2025 7:39 PM [facility] Parainfluenza Virus 2 Not Detected Not Detected LAB MICROBIOLOGY METHOD 04/09/2025 7:39 PM [facility] Parainfluenza Virus 3 Not Detected Not Detected LAB MICROBIOLOGY METHOD 04/09/2025 7:39 PM [facility] Parainfluenza Virus 4 Not Detected Not Detected LAB MICROBIOLOGY METHOD 04/09/2025 7:39 PM [facility] RSV PCR Not Detected Not Detected LAB MICROBIOLOGY METHOD 04/09/2025 7:39 PM [facility] Human Metapneumovirus A and B Not Detected Not Detected LAB MICROBIOLOGY METHOD 04/09/2025 7:39 PM [facility] Rhinovirus/Entero virus Not Detected Not Detected LAB MICROBIOLOGY METHOD 04/09/2025 7:39 PM [facility] Bordetella pertussis Not Detected Not Detected LAB MICROBIOLOGY METHOD 04/09/2025 7:39 PM [facility] Bordetella parapertussis Not Detected Not Detected LAB MICROBIOLOGY METHOD 04/09/2025 7:39 PM [facility] Mycoplasma pneumo by PCR Not Detected Not Detected LAB MICROBIOLOGY METHOD 04/09/2025 7:39 PM EST [facility] Chlamydia pneumoniae Not Detected Not Detected LAB MICROBIOLOGY METHOD 04/09/2025 7:39 PM EST [facility] SARS COV-2 Not Detected Not Detected LAB MICROBIOLOGY METHOD 04/09/2025 7:39 PM EST [facility] Swab Both anterior nares / Unknown Non-blood Collection / Unknown 04/09/2025 11:04 AM EST 04/09/2025 11:05 AM EST Narrative [facility] - 04/09/2025 7:39 PM EST Testing was performed using the [employer] Respiratory Pathogen PCR Assay. All results must be correlated with the clinical findings. Results should not be used as the sole basis for diagnosis. False Negative results may occur from the presence of sequence variants in the region targeted by the assay or the presence of inhibitors. Results may be affected by concurrent antiviral/antimicrobial therapy or levels of organisms that are below the limit of detection. Alexa LUNDBERG LAB MICROBIOLOGY - GENERAL ORDER CARMEN Final Result [facility] [address] [place] [address], * POC glucose manually resulted (04/09/2025 10:43 AM EST) [facility] Glucose POC 249 mg/dL Blood Capillary blood specimen / Unknown 04/09/2025 10:43 AM EST Alexa LUNDBERG POINT OF CARE TEST ENTER/EDIT OR DERABLES Final Result * Annual BMP Blood Test (09/10/2023) [facility] Annual BMP Blood Test Abstracted Historical Provider HEALTH MAINTENANCE Final Result * (ABNORMAL) Hemoglobin A1c (09/10/2023) [facility] Hemoglobin A1C 11.0(A) <=6.5 % Blood Venous blood specimen / Unknown us Historical Provider LAB BLOOD ORDERABLES Kelsey l Result * Lipid panel (12/28/2022) LDL/HDL Ratio 3 0 - 4 Triglycerides 144 0 - 150 mg/dL Cholesterol 136 0 - 200 mg/dL HDL 42 >=40 mg/dL LDL Cholesterol 66 0 - 100 mg/dL Blood Venous blood specimen / Unknown us Historical Provider LAB BLOOD ORDERABLES Kelsey l Result from Last 3 Months or Most Recently Relevant to Health Maintenance Insurance [facility] [facility] Care Teams Mailroom Clerk Relationship Specialty Start Date End Date Shahriar Hendrickson MD [address] [place] [phone] PCP - General Internal Medicine 05/14/24
--- OUTSIDE RECORDS SUMMARY | 2025-04-21 15:39 | XMS_ITS | Encounter Summary ---
Author Organization [employer] [place] [address] Care Team Providers Care Food Mixer Repairer Name Role Phone Shahriar Hendrickson MD Primary Care Provider Encounter Details Date Type Department Care Team (Late st Contact Info) Description 04/12/2025 Results Follow-Up Adult Medicine [facility] [address] [place], [place] [phone] Alexa Martinez PA [address] [place], [place] Social History Tobacco Use Types Packs/Day Years Used Date Smoking Tobacco: Never Smokeless Tobacco: Never Alcohol Use Standard Drinks/Week Comments Not Currently [...] care for your loved ones. For example, childcare aide or elderly care for an older adult? [...] on file Sexual Orientation Not on file documented as of this encounter Plan of Treatment Upcoming Encounters Date Type Department Care Team (Late st Contact Info) Description 05/14/2025 12:00 PM EST Office Visit Adult Medicine [address] [phone] Soledad Hinton PA [address] [place] [address] documented as of this encounter Visit Diagnoses Not on filedocumented in this encounter Additional Health Concerns Assessment Noted Time PHQ-9 Depression Total Score: 0 04/09/20 25 10:18 AM EST documented as of this encounter Care Teams Food Mixer Repairer Relationship Specialty Start Date End Date Shahriar Hendrickson MD [address] [place] [phone] PCP - General Internal Medicine 05/14/24 documented as of this encounter
== END 2025-04-21 14:42 | disposition home or self-care (01) ==
PROVIDERS: Physician Assistant Medical; Registered Nurse Emergency; Emergency Provider Emergency Medicine Emergency Medical Services; PCP Internal Medicine
DX: R10.9 Unspecified abdominal pain (principal); R11.0 Nausea; Z03.818 Encounter for observation for suspected exposure to other biological agents ruled out; J45.909 Unspecified asthma, uncomplicated; E11.9 Type 2 diabetes mellitus without complications
CPT/HCPCS: 80053; 81001; 82010; 83690; 83735; 85025; 87637; 99283